=== PATIENT | female | born 1970 | race Caucasian/White ===

== ENCOUNTER 2017-01-11 02:58 | Emergency (ER) | payer OTHER ==
--- NOTE | ~2017-01-11 | CR72 ---
[facility] A Service of [facility] & [facility] RADIOLOGY TEXT RESULTS PATIENT: MARIPOSA MALONE LOCATION: [facility] : 66 UNIT #: [id number] AGE: [address]: Larry Dunn MD SEX: F ORDER DR: [id number] [facility] [address] [place], [place] [address] [id number] E MR#: [id number] Acc #: [id number] NAME: MARIPOSA MALONE : 1970 SEX: F STUDY DATE/TIME: 01/11/2017 03:03 UNIT: [facility] ROOM: STUDY DESCRIPTION: CR Chest Single View Portable Attending Physician: Larry Dunn M.D. Ordering Physician: Larry Dunn M.D. Primary Care Physician: Maximino Ortez M.D. MEDICAL IMAGING REPORT This report is preliminary unless electronic signature is present EXAM Chest x-ray 01/11/2010 at 0303 hours INDICATIONS Shortness of air and chest pain for 3 days. History of smoking. FINDINGS AP portable chest 01/21/2015. Cardiac and mediastinal contours are normal. Lungs are clear. No pneumothorax. IMPRESSION No active disease. Dictated by... Yoel Domingo Jr., M.D. THIS IS AN ELECTRONICALLY VERIFIED REPORT Yoel Domingo Jr., M.D. at 01/11/2017 9:17 PM PAPITO/eber TD: 01/11/2017 10:18 JOB #: [id number] MEDICAL IMAGING REPORT COPY
--- NOTE | ~2017-01-11 | EKG ---
PATIENT: MARIPOSA MALONE UNIT #: [id number] Ventricular Rate: 82 BPM Atrial Rate: 82 BPM P-R Interval: 142 ms QRS Duration: 78 ms Q-T Interval: 392 ms QTC Calculation(Bezet): 457 ms P [place]: 46 degrees Calculated R [place]: 57 degrees Calculated T [place]: 64 degrees Diagnosis Line: Normal sinus rhythm Diagnosis Line: Normal ECG Diagnosis Line: Diagnosis Line: Confirmed by SUNNY VILLARREAL MD ([id number]) on 01/12/2017 Diagnosis Line: 5:38:30 PM INTERPRETING MD: PHIL BAUTISTA
[~2017-01-11 02:58] MED LIST: ACETAMINOPHEN PO; ACID CONTROL20 MG PO; ALPRAZOLAM PO; ASPIRIN81 M1 PO; BACTRIM DS TABL1 TA1; BACTRIM DS TABL1 TA2 PO; BACTRIM DS TABL1 TAB PO; BACTROBAN15 GM TOP; BENTYL10 MG DOB; CHLORHEXIDINE; CIPRO PO; CLEOCIN PO; COREG3.125 MG PO; EFFEXOR XR PO; FLEXERIL10 M1 PO; FLEXERIL10 MG PO; HYDROCODON-ACE1 EAC7 PO; IBUPROFEN PO; IBUPROFEN800 MG PO; KEFLEX PO; KETOPROFEN PO; KLONOPIN PO; LORTAB 10-5001 EACH PO; MEDROL4 MG/DOSE- PO; NAPROSYN-EC500 M1 PO; NAPROXEN PO; NEURONTIN PO; NORCO 5/325 TAB1 TAB PO; NORCO 7.5-3251 EACH PO; PERCOCET 5-3251 TAB PO; PHENERGAN SUPP25 MG PR; PHENERGAN W/CO120 ML PO; PHENERGAN25 M1 PO; PHENERGAN25 MG; PHENERGAN25 MG PO; PRENATAL MULTIV1 TA1; PYRIDIUM PO; TRAMADOL HCL50 M1 PO; ULTRAM PO; UNK ANTIDEPRESSANT; VICODIN 5/1 TAB 5/50 PO; VICODIN 5/500 T1 TAB PO; ZESTRIL5 MG PO; ZITHROMAX PO; [UNRECOGNIZED DRUG - REMARK]
[2017-01-11 03:15] LABS: BASOPHIL# 0.1 X10e3 (0-0.3); BASOPHIL% 0.7 % (0-2.5); EOSINOPHIL# 0.2 X10e3 (0-0.7); HEMOGLOBIN 13.7 gm/dL (12.0-16.0); LYMPHOCYTE# 3.3 X10e3 (1.0-3.5); LYMPHOCYTE% 34.4 % (17.0-45.0); MEAN CELL VOLUME 82.2 FL (83-96); MEAN CORPUSCULAR HEMOGLOBIN 27.5 PG (28-34); MEAN CORPUSCULAR HGB CONC 33.4 g/dL (30-36); MEAN PLATELET VOLUME 7.8 FL (6.5-11.5); MONOCYTE# 0.9 X10e3 (0-1.0); MONOCYTE% 9.5 % (3.0-12.0); NEUTROPHIL# 5.2 X10e3 (1.5-7.1); NEUTROPHIL% 53.4 % (40-75); PLATELET COUNT 395 X10e3 (140-420); RED BLOOD COUNT 4.98 X10e (3.90-5.30); WHITE BLOOD COUNT 9.7 X10e3 (4.0-10.5)
[2017-01-11 03:16] LABS: DIFF IND NO
[2017-01-11 03:23] LABS: POC - CKMB <1.0 ng/mL (0.0-7.9); POC - TROPONIN <0.05 ng/mL (<=0.05)
[2017-01-11 03:36] LABS: ALBUMIN SERUM 3.7 g/dL (3.5-5.0); ALKALINE PHOSPHATASE 116 U/L (32-92); ALT (SGPT) 12 U/L (10-40); AST (SGOT) 19 U/L (10-42); BILIRUBIN,TOTAL 0.1 mg/dL (0.2-2.0); BLOOD UREA NITROGEN 10 mg/dL (9-23); BUN/CREATININE RATIO 14.28; CALCIUM SERUM 8.5 mg/dL (8.4-10.2); CARBON DIOXIDE 29 mmol/L (22-31); CHLORIDE 94 mmol/L (100-111); CREATININE SERUM 0.7 mg/dL (0.6-1.4); GLOM FILT RATE Estimated ABOVE60 mL/min (>60); GLUCOSE FASTING 100 mg/dL (70-110); MAGNESIUM 1.9 mg/dL (1.6-3.0); POTASSIUM 3.5 mmol/L (3.5-5.1); PROTEIN TOTAL SERUM 6.6 g/dL (6.0-8.3); SODIUM 131 mmol/L (135-145)
[2017-01-11 03:37] LABS: BILIRUBIN, DIRECT 0.1 mg/dL (0.0-0.2)
== END 2017-01-11 03:57 | disposition home or self-care (01) ==
LOC: CED 02:58
PROVIDERS: Emergency Medicine
DX: R07.9 Chest pain, unspecified (principal); R20.2 Paresthesia of skin; Z87.442 Personal history of urinary calculi; Z90.49 Acquired absence of other specified parts of digestive tract; F17.200 Nicotine dependence, unspecified, uncomplicated; Z88.8 Allergy status to other drugs, medicaments and biological substances
CPT/HCPCS: 36415; 71010; 80048; 80076; 82553; 83735; 84484; 85025; 93005; 99284; J2060

== ENCOUNTER 2017-01-25 23:00 | Emergency (ER) | payer OTHER | END 2017-01-26 00:05 | disposition left against medical advice (07) | LOC: CED 23:00 | DX: Z53.21 Procedure and treatment not carried out due to patient leaving prior to being seen by health care provider (principal) ==

== ENCOUNTER 2017-01-30 03:22 | Emergency (ER) | payer OTHER ==
--- NOTE | ~2017-01-30 | EKG ---
PATIENT: MARIPOSA MALONE UNIT #: [id number] Ventricular Rate: 86 BPM Atrial Rate: 86 BPM P-R Interval: 138 ms QRS Duration: 80 ms Q-T Interval: 366 ms QTC Calculation(Bezet): 437 ms P [employer]: 47 degrees Calculated R [employer]: 60 degrees Calculated T [employer]: 71 degrees Diagnosis Line: Normal sinus rhythm Diagnosis Line: Normal ECG Diagnosis Line: When compared with ECG of 11-JAN-2017 02:54, Diagnosis Line: No significant change was found Diagnosis Line: Confirmed by SUNNY VILLARREAL MD ([id number]) on 01/30/2017 Diagnosis Line: 11:02:24 PM INTERPRETING MD: PHIL BAUTISTA
== END 2017-01-30 03:28 | disposition left against medical advice (07) ==
LOC: CED 03:22
DX: Z53.21 Procedure and treatment not carried out due to patient leaving prior to being seen by health care provider (principal)
CPT/HCPCS: 93005

== ENCOUNTER 2017-02-03 08:17 | Emergency (ER) | payer OTHER ==
--- NOTE | ~2017-02-03 | EKG ---
PATIENT: MARIPOSA MALONE UNIT #: [id number] Ventricular Rate: 78 BPM Atrial Rate: 78 BPM P-R Interval: 128 ms QRS Duration: 82 ms Q-T Interval: 378 ms QTC Calculation(Bezet): 430 ms P [place]: 47 degrees Calculated R [place]: 63 degrees Calculated T [place]: 70 degrees Diagnosis Line: Normal sinus rhythm Diagnosis Line: Normal ECG Diagnosis Line: When compared with ECG of 30-JAN-2017 00:16, Diagnosis Line: No significant change was found Diagnosis Line: Confirmed by SUNNY VILLARREAL MD ([id number]) on 02/03/2017 Diagnosis Line: 4:42:05 PM INTERPRETING MD: PHIL BAUTISTA
--- NOTE | ~2017-02-03 | CR72 ---
[facility] A Service of [facility] & [facility] RADIOLOGY TEXT RESULTS PATIENT: MARIPOSA MALONE LOCATION: [facility] : 66 UNIT #: [id number] AGE: [address]: Antonia Harmon APRN SEX: F ORDER DR: [id number] [facility] [address] [place] [place], [place] [address] [id number] E MR#: [id number] Acc #: [id number] NAME: MARIPOSA MALONE : 1970 SEX: F STUDY DATE/TIME: 02/03/2017 8:08 UNIT: [facility] ROOM: STUDY DESCRIPTION: CR Chest Single View Portable Attending Physician: Antonia Harmon A.P.R.N. Ordering Physician: Ed Fernando Kelly M.D. Primary Care Physician: Maximino Ortez M.D. MEDICAL IMAGING REPORT This report is preliminary unless electronic signature is present EXAM Portable chest. INDICATION 46-year-old female with shortness of breath, chest pressure today. COMPARISON STUDIES Comparison with 01/11/2007. FINDINGS The lungs are well expanded and clear. Heart size normal. Visualized osseous structures are unremarkable. IMPRESSION Negative chest. Dictated by... Raheem Dumont M.D. THIS IS AN ELECTRONICALLY VERIFIED REPORT Raheem Dumont M.D. at 02/03/2017 5:02 PM VIKA/joanna TD: 02/03/2017 10:03 JOB #: [id number] MEDICAL IMAGING REPORT Page 1 of 1 COPY
[2017-02-03 08:19] LABS: BASOPHIL# 0.1 X10e3 (0-0.3); BASOPHIL% 0.5 % (0-2.5); EOSINOPHIL# 0.4 X10e3 (0-0.7); EOSINOPHIL% 3.2 % (0.0-7.0); HEMATOCRIT 39.8 % (35.0-45.0); HEMOGLOBIN 12.9 gm/dL (12.0-16.0); LYMPHOCYTE# 3.3 X10e3 (1.0-3.5); LYMPHOCYTE% 23.5 % (17.0-45.0); MEAN CELL VOLUME 83.3 FL (83-96); MEAN CORPUSCULAR HEMOGLOBIN 27.1 PG (28-34); MEAN CORPUSCULAR HGB CONC 32.5 g/dL (30-36); MEAN PLATELET VOLUME 8.3 FL (6.5-11.5); MONOCYTE% 7.1 % (3.0-12.0); NEUTROPHIL# 9.1 X10e3 (1.5-7.1); NEUTROPHIL% 65.7 % (40-75); PLATELET COUNT 329 X10e3 (140-420); RED BLOOD COUNT 4.77 X10e (3.90-5.30); RED CELL DISTRIBUTION WIDTH 13.1 % (11.0-15.5); WHITE BLOOD COUNT 13.8 X10e3 (4.0-10.5)
[2017-02-03 08:25] LABS: DIFF IND NO
[2017-02-03 08:25] LABS: POC - CKMB <1.0 ng/mL (0.0-7.9); POC - TROPONIN <0.05 ng/mL (<=0.05)
[2017-02-03 08:49] LABS: ALBUMIN SERUM 3.5 g/dL (3.5-5.0); ALKALINE PHOSPHATASE 124 U/L (32-92); ALT (SGPT) 14 U/L (10-40); AST (SGOT) 19 U/L (10-42); BILIRUBIN,TOTAL 0.5 mg/dL (0.2-2.0); BLOOD UREA NITROGEN 14 mg/dL (9-23); BUN/CREATININE RATIO 23.33; CALCIUM SERUM 8.6 mg/dL (8.4-10.2); CARBON DIOXIDE 24 mmol/L (22-31); CHLORIDE 105 mmol/L (100-111); CREATININE SERUM 0.6 mg/dL (0.6-1.4); GLOM FILT RATE Estimated 107.8 mL/min (>60); GLUCOSE FASTING 96 mg/dL (70-110); POTASSIUM 3.7 mmol/L (3.5-5.1); PROTEIN TOTAL SERUM 6.5 g/dL (6.0-8.3); SODIUM 136 mmol/L (135-145)
[2017-02-03 08:52] LABS: BILIRUBIN, DIRECT <0.1 mg/dL (0.0-0.2); BILIRUBIN,INDIRECT 0.4 mg/dL (0.0-0.9)
[2017-02-03 10:08] LABS: POC - CKMB <1.0 ng/mL (0.0-7.9); POC - TROPONIN <0.05 ng/mL (<=0.05)
== END 2017-02-03 12:16 | disposition home or self-care (01) ==
LOC: CED 08:17
PROVIDERS: Nurse Practitioner
DX: R07.89 Other chest pain (principal); F32.9 Major depressive disorder, single episode, unspecified; F41.9 Anxiety disorder, unspecified; F17.210 Nicotine dependence, cigarettes, uncomplicated; Z98.890 Other specified postprocedural states; Z88.8 Allergy status to other drugs, medicaments and biological substances
CPT/HCPCS: 36415; 71010; 80048; 80076; 82553; 84484; 85025; 85730; 93005; 99285

== ENCOUNTER → 2017-02-14 20:00 | Emergency (ER) | payer OTHER | END | disposition home or self-care (01) | LOC: CED 20:00 | DX: Z53.21 Procedure and treatment not carried out due to patient leaving prior to being seen by health care provider (principal) ==

== ENCOUNTER 2017-03-26 23:42 | Emergency (ER) | payer SELFPAY | END 2017-03-26 23:55 | disposition left against medical advice (07) | LOC: CED 23:42 | DX: Z53.21 Procedure and treatment not carried out due to patient leaving prior to being seen by health care provider (principal) ==

== ENCOUNTER 2017-05-17 03:42 | Emergency (ER) | payer SELFPAY ==
--- NOTE | ~2017-05-17 | CT4 ---
[facility] A Service of [facility] RADIOLOGY TEXT RESULTS PATIENT: MARIPOSA MALONE LOCATION: [facility] : 66 UNIT #: [id number] AGE: [address]: Larry Barrientos MD SEX: F ORDER DR: [id number] [facility] [address] [place], [place] [address] [id number] E MR#: [id number] Acc #: [id number] NAME: MARIPOSA MALONE : 1970 SEX: F STUDY DATE/TIME: 05/17/2017 5:57 UNIT: [facility] ROOM: STUDY DESCRIPTION: CT Abd and Pelv Wo Cont Attending Physician: Candelario Barrientos M.D. Ordering Physician: Ed Doctor [id number] [facility] Primary Care Physician: Maximino Ortez M.D. MEDICAL IMAGING REPORT This report is preliminary unless electronic signature is present EXAM CT abdomen and pelvis INDICATION Left flank pain and nausea for [address] of the abdomen and pelvis without contrast. Coronal and sagittal reconstructions were obtained. This CT examination was performed with one or more of the following radiation dose reduction techniques: automatic exposure control, adjustment of mA and/or kV according to patient size, and iterative reconstruction. COMPARISON CT abdomen and pelvis 07/06/2014. FINDINGS No renal calculi. No hydronephrosis. Please note the mid to distal ureters are poorly evaluated due to the patient's lack of intraabdominal fat. Noncontrast evaluation of the remaining solid abdominal organs are within normal limits. The gallbladder is not distended. The bowel is not dilated. The appendix is not clearly identified. Patient reports prior appendectomy. PELVIS: The inferior most aspect of the abdomen is excluded from this CT. Bladder is unremarkable. Uterus and ovaries are within normal limits. No pelvic mass or free pelvic fluid. No acute osseous abnormalities. IMPRESSION [facility] A Service of [facility] RADIOLOGY TEXT RESULTS PATIENT: MARIPOSA MALONE LOCATION: [facility] : 66 UNIT #: [id number] AGE: [address]: Larry Barrientos MD SEX: F ORDER DR: No acute findings in the abdomen or pelvis. Please note that the ureters are difficult to follow in their entirety due to the patient's lack of intraabdominal fat, however, there is no hydronephrosis. Dictated by... Sam Paniagua M.D. THIS IS AN ELECTRONICALLY VERIFIED REPORT Sam Paniagua M.D. at 05/17/2017 8:02 AM REYNALDO/sav TD: 05/17/2017 07:14 JOB #: [id number] MEDICAL IMAGING REPORT Page 1 of 1 COPY
[2017-05-17 04:08] LABS: URINE SOURCE CLEAN CATCH
[2017-05-17 04:39] LABS: URINE APPEARANCE CLEAR; URINE BILIRUBIN NEG (NEG); URINE BLOOD NEG (NEG); URINE COLOR YELLOW; URINE GLUCOSE NEG (NEG); URINE KETONE NEG (NEG); URINE LEUKOCYTE ESTERASE NEG (NEG); URINE NITRATE NEG (NEG); URINE PH 5.5 (5-8); URINE PROTEIN NEG (NEG); URINE SPECIFIC GRAVITY 1.005 (1.003-1.035); URINE UROBILINOGEN 0.2 MG/DL (NEG)
[2017-05-17 04:43] LABS: CULTURE INDICATED? NO
[2017-05-17 05:33] LABS: BASOPHIL# 0.1 X10e3 (0-0.3); BASOPHIL% 0.4 % (0-2.5); EOSINOPHIL# 0.1 X10e3 (0-0.7); EOSINOPHIL% 0.5 % (0.0-7.0); HEMATOCRIT 37.8 % (35.0-45.0); HEMOGLOBIN 12.5 gm/dL (12.0-16.0); LYMPHOCYTE# 3.2 X10e3 (1.0-3.5); LYMPHOCYTE% 21.3 % (17.0-45.0); MEAN CELL VOLUME 81.8 FL (83-96); MEAN CORPUSCULAR HEMOGLOBIN 27.1 PG (28-34); MEAN CORPUSCULAR HGB CONC 33.2 g/dL (30-36); MEAN PLATELET VOLUME 8.5 FL (6.5-11.5); MONOCYTE# 1.4 X10e3 (0-1.0); MONOCYTE% 9.2 % (3.0-12.0); NEUTROPHIL# 10.3 X10e3 (1.5-7.1); NEUTROPHIL% 68.6 % (40-75); PLATELET COUNT 302 X10e3 (140-420); RED BLOOD COUNT 4.62 X10e (3.90-5.30); WHITE BLOOD COUNT 15.1 X10e3 (4.0-10.5)
[2017-05-17 05:36] LABS: DIFF IND YES
[2017-05-17 05:59] LABS: BUN/CREATININE RATIO 17.5; CALCIUM SERUM 8.6 mg/dL (8.4-10.2); CREATININE SERUM 0.8 mg/dL (0.6-1.4); GLOM FILT RATE Estimated 87.3 mL/min (>60); POTASSIUM 3.2 mmol/L (3.5-5.1)
[2017-05-17 06:09] LABS: ANISOCYTOSIS SL; PLATELET ESTIMATE NORMAL (NORMAL)
== END 2017-05-17 07:04 | disposition home or self-care (01) ==
LOC: CED 03:42
PROVIDERS: Emergency Medicine
DX: S16.1XXA Strain of muscle, fascia and tendon at neck level, initial encounter (principal); S29.012A Strain of muscle and tendon of back wall of thorax, initial encounter; F17.210 Nicotine dependence, cigarettes, uncomplicated; X58.XXXA Exposure to other specified factors, initial encounter; Y92.9 Unspecified place or not applicable
CPT/HCPCS: 36415; 74176; 80048; 81003; 84703; 85025; 96361; 96374; 96375; 99284; J1885; J2270; J2550